=== PATIENT | female | born 1980 | race Caucasian/White ===

== ENCOUNTER → 2019-01-08 | Outpatient (CLI) | payer OTHER | END | disposition home or self-care (01) | LOC: SLR 11:00 | PROVIDERS: ATTEND Otolaryngology | DX: G47.33 Obstructive sleep apnea (adult) (pediatric) (principal); R40.0 Somnolence; R06.83 Snoring | CPT/HCPCS: 95810 ==

== ENCOUNTER 2019-02-25 11:00 | Outpatient (CLI) | payer OTHER | END 2019-02-25 11:01 | disposition home or self-care (01) | LOC: SLR 11:00 | PROVIDERS: ATTEND Otolaryngology | DX: G47.33 Obstructive sleep apnea (adult) (pediatric) (principal); R40.0 Somnolence; R06.83 Snoring; E66.9 Obesity, unspecified | CPT/HCPCS: 95811 ==

== ENCOUNTER 2021-07-14 12:27 | Emergency (ER) | payer OTHER ==
[2021-07-14 12:49] VITALS: BP 112/80
[2021-07-14] MEDS ORDERED: FAMOTIDINE 20 MG TAB PO ONE (12:52)
[2021-07-14] MEDS ORDERED: ONDANSETRON 4 MG/2 ML INJ IV ONE (12:52)
[2021-07-14] MEDS ORDERED: KETOROLAC 30 MG/1 ML INJ IV ONE (12:52)
--- NOTE | 2021-07-14 12:53 | Emergency Department Report ---
ED General Adult HPI - General Chief complaint: Abdominal Pain Stated complaint: WEAK Time Seen by Provider: 07/14/21 12:50 Source: patient Mode of arrival: Ambulatory Limitations: No Limitations - History of Present Illness Initial comments: 40-year-old female presents to the ER today with complaints of generalized weakness, generalized fatigue and upper abdominal discomfort. Patient states that she feels dehydrated. Patient states her symptoms started about 1 week ago. She states that she is a gastric bypass patient which she had done in April 2021. She states that she has not had much appetite in the past week. She denies any vomiting or nausea. She states that the discomfort is mainly upper abdomen and around into her back. She reports decreased urine output but no dysuria, hematuria or urinary odor. She reports no chest pain or shortness of breath. She states that her next appointment with her gastric bypass surgeon is 18 July. She denies any tobacco use, or alcohol abuse. The first day of her last menstrual cycle was this past Sunday. She status post tubal ligation. MD Complaint: Generalized weakness, generalized fatigue, abdominal pain -: Gradual, week(s) Severity scale (0 -10): 10 - Related Data Previous Rx's Medication Instructions Recorded Last Taken Type Famotidine [Pepcid] 20 mg PO BID #30 tablet 07/14/21 Unknown Rx Fluconazole [Diflucan TAB] 200 mg PO QDAY #2 tablet 07/14/21 Unknown Rx HYDROcodone/APAP 5-325 [[place] 1 each PO Q4HR PRN #12 tablet 07/14/21 Unknown Rx 5/325] Pantoprazole [Protonix] 40 mg PO QDAY #30 tablet 07/14/21 Unknown Rx cephALEXin [Keflex] 500 mg PO Q8HR #21 cap 07/14/21 Unknown Rx Allergies Allergy/AdvReac Type Severity Reaction Status Date / Time No Known Allergies Allergy Unverified 07/14/21 12:42 ED Review of Systems ROS: Stated complaint: WEAK Other details as noted in HPI Comment: All other systems reviewed and negative Constitutional: malaise, weakness. denies: chills, fever Eyes: denies: eye pain, eye discharge, vision change ENT: denies: ear pain, throat pain Respiratory: denies: cough, shortness of breath, SOB with exertion, SOB at rest, wheezing Cardiovascular: denies: chest pain, palpitations Gastrointestinal: abdominal pain, other (Decreased appetite). denies: nausea, vomiting, diarrhea, constipation, hematemesis, melena, hematochezia Genitourinary: denies: urgency, dysuria, frequency, hematuria, discharge, abnormal menses, dyspareunia Musculoskeletal: back pain. denies: joint swelling, arthralgia Skin: denies: rash, lesions, change in color, change in hair/nails, pruritus Neurological: denies: headache, weakness, numbness, paresthesias, confusion, ab normal gait, vertigo Psychiatric: denies: anxiety, depression, auditory hallucinations, visual hallucinations, homicidal thoughts, suicidal thoughts Hematological/Lymphatic: denies: easy bleeding, easy bruising, swollen glands ED Past Medical Hx - Past Medical History Hx Hypertension: Yes - Surgical History Additional Surgical History: GASTRIC BYPASS - Medications Home Medications: Home Medications Medication Instructions Recorded Confirmed Last Taken Type Famotidine [Pepcid] 20 mg PO BID #30 tablet 07/14/21 Unknown Rx Fluconazole [Diflucan TAB] 200 mg PO QDAY #2 tablet 07/14/21 Unknown Rx HYDROcodone/APAP 5-325 [[place] 1 each PO Q4HR PRN #12 tablet 07/14/21 Unknown Rx 5/325] Pantoprazole [Protonix] 40 mg PO QDAY #30 tablet 07/14/21 Unknown Rx cephALEXin [Keflex] 500 mg PO Q8HR #21 cap 07/14/21 Unknown Rx ED Physical Exam - General Limitations: No Limitations General appearance: alert, in no apparent distress - Head Head exam: Present: atraumatic, normocephalic - Eye Eye exam: Present: normal appearance, PERRL, EOMI Pupils: Present: normal accommodation - ENT ENT exam: Present: normal exam, mucous membranes moist - Neck Neck exam: Present: normal inspection, full ROM - Respiratory Respiratory exam: Present: normal lung sounds bilaterally. Absent: respiratory distress, wheezes, rales, rhonchi, stridor - Cardiovascular Cardiovascular Exam: Present: regular rate, normal rhythm, normal heart sounds - GI/Abdominal GI/Abdominal exam: Present: soft, tenderness (Mild epigastric tenderness without guarding or rebound). Absent: distended, guarding, rebound, rigid - Neurological Exam Neurological exam: Present: alert, oriented X3, CN II-XII intact, normal gait - Psychiatric Psychiatric exam: Present: normal affect, normal mood - Skin Skin exam: Present: intact ED Course Vital Signs 07/14/21 12:46 Temperature 97.5 F L Pulse Rate 93 H Respiratory 18 Rate Blood Pressure 112/80 [Right] O2 Sat by Pulse 100 Oximetry ED Medical Decision Making - Lab Data Result diagrams: 07/14/21 13:07 07/14/21 13:07 - Radiology Data Radiology results: report reviewed Patient: NISHI MELGAR MR#: [id number] : 1980 Acct:[id number] Age/Sex: 40 / F ADM Date: 07/14/21 Loc: ED Attending Dr: Ordering Physician: ESTRELLA CARDENAS Date of Service: 07/14/21 Procedure(s): XR abdomen 1V ap Accession Number(s): [id number] cc: ESTRELLA CARDENAS Fluoro Time In Minutes: ABDOMEN 1 VIEW(S) INDICATION / CLINICAL INFORMATION: up abdominal pain status post gastric bypass surg. COMPARISON: None available. FINDINGS: TUBES / LINES: None. BOWEL GAS PATTERN: No significant abnormality. FREE AIR / EXTRALUMINAL GAS: None seen. ADDITIONAL FINDINGS: Postsurgical changes are seen in the left upper quadrant in the stomach. There are a few punctate calcific densities in the right upper quadrant. These could be small renal stones or gallstones. IMPRESSION: 1. No radiographic evidence of acute abdomen. Postsurgical changes in the left upper quadrant. Signer Name: Mauri Ruiz MD Signed: 07/14/2021 2:12 PM Workstation Name: [id number] Transcribed By: Dictated By: Mauri Ruiz MD Electronically Authenticated By: Mauri Ruiz MD Signed Date/Time: 07/14/211411 DD/ 09 TD/TT: - Medical Decision Making All labs reviewed -- CBC and CMP unremarkable. Lipase normal. UA concerning for UTI, reflex culture ordered and pending. There is also yeast in UA. KUB normal. Patient is currently resting comfortably. She is not in any acute distress. She hemodynamically stable, she is not toxic and neurologically intact with a normal gait. She has a nonsurgical abdominal exam. Discussed results with patient. She will be treated for UTI as well as yeast infection. She states that she did have an upper endoscopy recently, and she was told that it was okay but I will still put her on H2 rafael and PPI to cover for possible gastritis. Her Exam, diagnostic testing and current condition do not suggest acute appendicitis, bowel obstruction, acute cholecystitis, bowel perforation, major GI bleed, severe diverticulitis, abdominal aortic aneurysm, mesenteric ischemia, volvulus, acute ME or unstable angina, sepsis or other significant pathology to warrant further testing, continued ED treatment, admission or surgical ev aluation at this point. Recommend she keeps her appointment with her gastric bypass surgeon for July 26. She understands to return to the ER if any point her symptoms worsens or changes in any way. Critical care attestation.: If time is entered above; I have spent that time in minutes in the direct care of this critically ill patient, excluding procedure time. ED Disposition Clinical Impression: Weakness, UTI (urinary tract infection), Yeast vaginitis, Abdominal discomfort, epigastric Disposition: 01 HOME / SELF CARE / HOMELESS Is pt being admited?: No Does the pt Need Aspirin: No Condition: Stable Instructions: Gastritis, Adult, Prov-ll-Smed, Vaginal Yeast Infection, Adult, Urinary Tract Infection, Adult, [id number], Weakness, Abdominal Pain (ED) Additional Instructions: I recommend that you take the medications prescribed as directed. I do recommend that you keep your appointment with your gastric bypass surgeon for July 26. Try and drink lots of fluids. Return to the ER if at any point your symptoms worsens or changes in any way. Prescriptions: Fluconazole [Diflucan TAB] 200 mg PO QDAY #2 tablet cephALEXin [Keflex] 500 mg PO Q8HR #21 cap HYDROcodone/APAP 5-325 [[place] 5/325] 1 each PO Q4HR PRN #12 tablet PRN Reason: Pain Famotidine [Pepcid] 20 mg PO BID #30 tablet Pantoprazole [Protonix] 40 mg PO QDAY #30 tablet Referrals: PRIMARY CARE, [Primary Care Provider] - 3-5 Days Forms: Work/School Release Form(ED) Time of Disposition: 15:51
[2021-07-14 13:52] LABS: Basophils # (Auto) 0.1 K/mm3 (0.0-0.1); Basophils % (Auto) 0.7 % (0.0-1.8); Eosinophils # (Auto) 0.1 K/mm3 (0.0-0.4); Eosinophils % (Auto) 1.5 % (0.0-4.3); Hematocrit 35.6 % (30.3-42.9); Hemoglobin 11.2 gm/dl (10.1-14.3); Lymphocytes # (Auto) 1.5 K/mm3 (1.2-5.4); Lymphocytes % (Auto) 18.6 % (13.4-35.0); Mean Corpuscular HGB Conc 32 % (30-34); Mean Corpuscular Volume 81 fl (79-97); Monocytes # (Auto) 0.7 K/mm3 (0.0-0.8); Platelet Count 389 K/mm3 (140-440); Red Cell Distribution Width 15.2 % (13.2-15.2)
[2021-07-14 14:09] LABS: Alanine Aminotransferase 23 units/L (7-56); Albumin 3.9 g/dL (3.9-5); BUN/Creatinine Ratio 18; Blood Urea Nitrogen 16 mg/dL (7-17); Calcium 8.9 mg/dL (8.4-10.2); Hemolysis Index 0
--- NOTE | 2021-07-14 14:16 | XRay Report ---
ABDOMEN 1 VIEW(S) INDICATION / CLINICAL INFORMATION: up abdominal pain status post gastric bypass surg. COMPARISON: None available. FINDINGS: TUBES / LINES: None. BOWEL GAS PATTERN: No significant abnormality. FREE AIR / EXTRALUMINAL GAS: None seen. ADDITIONAL FINDINGS: Postsurgical changes are seen in the left upper quadrant in the stomach. There are a few punctate calcific densities in the right upper quadrant. These could be small renal s tones or gallstones. IMPRESSION: 1. No radiographic evidence of acute abdomen. Postsurgical changes in the left upper quadrant. Signer Name: Mauri Ruiz MD Signed: 07/14/2021 2:12 PM Workstation Name: [id number]
[2021-07-14 15:46] LABS: Bacteria,Urine 1+ /HPF (Negative); Bilirubin,Urine NEG (Negative); Blood,Urine MOD (Negative); Color,Urine Amber (Yellow); Mucus,Urine 2+ /HPF
== END 2021-07-14 16:12 | disposition home or self-care (01) ==
LOC: ED 12:27
DX: R53.1 Weakness (principal); N39.0 Urinary tract infection, site not specified; B37.3 Candidiasis of vulva and vagina; R10.0 Acute abdomen
CPT/HCPCS: 36415; 74018; 80053; 81001; 83690; 83735; 84703; 85025; 87086; 96374; 96375; 99284; J1885; J2405

== ENCOUNTER 2022-03-15 09:56 | Emergency (ER) | payer OTHER ==
[2022-03-15 11:34] VITALS: BP 137/86
--- NOTE | 2022-03-15 11:55 | Emergency Department Report ---
ED Female HPI - General Chief complaint: Vaginal Bleeding Stated complaint: BLOOD CLOTS/DEHYDRATED Time Seen by Provider: 03/15/22 11:48 Source: patient Mode of arrival: Ambulatory Limitations: No Limitations - History of Present Illness Initial comments: 41 yo comes to ER with irregular periods and pos home preg test. pos vag bleeding. no vag d/c. no fever. no chills. no back pain. no dysuria. MD Complaint: vaginal bleeding -: Gradual Severity scale (0 -10): 2 Quality: cramping Consistency: intermittent Improves with: none Are you Now?: No Associated Symptoms: denies other symptoms - Related Data Sexually active: Yes Previous Rx's Medication Instructions Recorded Last Taken Type Amoxicillin [Trimox CAP] 500 mg PO BID #20 capsule 03/15/22 Unknown Rx Allergies Allergy/AdvReac Type Severity Reaction Status Date / Time No Known Allergies Allergy Verified 03/15/22 12:57 ED Review of Systems ROS: Stated complaint: BLOOD CLOTS/DEHYDRATED Other details as noted in HPI Comment: All other systems reviewed and negative ED Past Medical Hx - Past Medical History Previous Medical History?: Yes Hx Hypertension: Yes - Surgical History Past Surgical History?: Yes Additional Surgical History: GASTRIC BYPASS - Family History Family history: no significant - Social History Smoking Status: Never Smoker Substance Use Type: Alcohol - Medications Home Medications: Home Medications Medication Instructions Recorded Confirmed Last Taken Type Amoxicillin [Trimox CAP] 500 mg PO BID #20 capsule 03/15/22 Unknown Rx ED Physical Exam - General Limitations: No Limitations General appearance: alert, in no apparent distress - Head Head exam: Present: atraumatic, normocephalic - Eye Eye exam: Present: normal appearance - ENT ENT exam: Present: mucous membranes moist - Neck Neck exam: Present: normal inspection - Respiratory Respiratory exam: Present: normal lung sounds bilaterally. Absent: respiratory distress - Cardiovascular Cardiovascular Exam: Present: regular rate, normal rhythm. Absent: systolic murmur, diastolic murmur, rubs, gallop - GI/Abdominal GI/Abdominal exam: Present: soft, normal bowel sounds - Extremities Exam Extremities exam: Present: normal inspection - Back Exam Back exam: Present: normal inspection - Neurological Exam Neurological exam: Present: alert, oriented X3 - Psychiatric Psychiatric exam: Present: normal affect, normal mood - Skin Skin exam: Present: warm, dry, intact, normal color. Absent: rash ED Course Vital Signs 03/15/22 11:32 Temperature 98.3 F Pulse Rate 83 Respiratory 20 Rate Blood Pressure 137/86 [Right] O2 Sat by Pulse 100 Oximetry ED Medical Decision Making - Lab Data Result diagrams: 03/15/22 12:15 03/15/22 12:15 - Radiology Data Radiology results: report reviewed, image reviewed - Medical Decision Making Labs 03/15/22 03/15/22 03/15/22 11:54 12:15 12:20 WBC 8.4 RBC 4.76 Hgb 11.9 Hct 37.5 MCV 79 MCH 25 L MCHC 32 RDW 16.3 H Plt Count 429 Lymph % (Auto) 23.1 [place] % (Auto) 6.0 Eos % (Auto) 1.2 Baso % (Auto) 1.1 Lymph # (Auto) 1.9 [place] # (Auto) 0.5 Eos # (Auto) 0.1 Baso # (Auto) 0.1 Seg Neutrophils % 68.6 Seg Neutrophils # 5.8 Urine Color Yellow Urine Turbidity Clear Specific [place] (Man) 1.010 Ur Protein (Man) 1+ Ur Ketones (Man) Negative Urine Bilirubin (Man) Negative Urine WBC (Auto) 14.0 H Urine RBC (Auto) 24.0 U Epithel Cells (Auto) 14.0 H Urine RBC (Manual) 3+ Urine Mucus Few Blood Type B POSITIVE Ord Rhogam Gestat Weeks Rh pos Vital Signs 03/15/22 11:32 Temperature 98.3 F Pulse Rate 83 Respiratory 20 Rate Blood Pressure 137/86 [Right] O2 Sat by Pulse 100 Oximetry labs noted ua noted rocephin IM us noted dc home with dc plan of care including diet, meds, activity and follow up. pt verbalizes understanding of plan of care. - Differential Diagnosis ro ab/uti/ectopic Critical care attestation.: If time is entered above; I have spent that time in minutes in the direct care of this critically ill patient, excluding procedure time. ED Disposition Clinical Impression: Irregular menses UTI (urinary tract infection) Qualifiers: Urinary tract infection type: site unspecified Disposition: 01 HOME / SELF CARE / HOMELESS Is pt being admited?: No Does the pt Need Aspirin: No Condition: Stable Instructions: Urinary Tract Infection, Adult Additional Instructions: med as ordered today until gone follow up with obgyn referral below tylenol for pain Prescriptions: Amoxicillin [Trimox CAP] 500 mg PO BID #20 capsule Referrals: MARKEL MISHRA MD [Staff Physician] - 3-5 Days Forms: Work/School Release Form(ED) Time of Disposition: 15:49
[2022-03-15 12:17] LABS: Mucus,Urine FEW /HPF
[2022-03-15 12:18] LABS: Color,Urine Yellow (Yellow)
[2022-03-15] MEDS ORDERED: ACETAMINOPHEN 500 MG TAB PO ONE (12:24)
[2022-03-15] MEDS ORDERED: LIDOCAINE-MPF (1%) 10 MG/1 ML VIAL 5 ML INFILTRATI ONE (12:24)
[2022-03-15 13:25] LABS: Basophils # (Auto) 0.1 K/mm3 (0.0-0.1); Basophils % (Auto) 1.1 % (0.0-1.8); Eosinophils # (Auto) 0.1 K/mm3 (0.0-0.4); Eosinophils % (Auto) 1.2 % (0.0-4.3); Hematocrit 37.5 % (30.3-42.9); Hemoglobin 11.9 gm/dl (10.1-14.3); Lymphocytes # (Auto) 1.9 K/mm3 (1.2-5.4); Lymphocytes % (Auto) 23.1 % (13.4-35.0); Mean Corpuscular HGB Conc 32 % (30-34); Mean Corpuscular Volume 79 fl (79-97); Monocytes # (Auto) 0.5 K/mm3 (0.0-0.8); Platelet Count 429 K/mm3 (140-440); Red Blood Count 4.76 M/mm3 (3.65-5.03); Red Cell Distribution Width 16.3 % (13.2-15.2)
--- NOTE | 2022-03-15 15:47 | Ultrasound Report ---
ULTRASOUND OBSTETRIC INDICATION / CLINICAL INFORMATION: VAG BLEED IN PREG. TECHNIQUE: Transabdominal. The patient declined transvaginal imaging. COMPARISON: None available. FINDINGS: No intrauterine is seen. The uterus measures 10.9 cm in length. There is a 1.3 cm fibroid i n the posterior uterus. Endometrial stripe measures 6 mm. ADNEXA: The right ovary is not visualized. The left ovary measures 3 cm and is unremarkable. FREE FLUID: None. ADDITIONAL FINDINGS: None. IMPRESSION: 1. No intrauterine is seen. No free fluid is seen. The right ovary is not visualized. The l eft ovary is unremarkable. 2. Correlation with serum beta hCG level is recommended Signer Name: Ulysses Giles MD Signed: 03/15/2022 3:43 PM Workstation Name: [id number]
[2022-03-15 16:05] LABS: BUN/Creatinine Ratio 19; Blood Urea Nitrogen 17 mg/dL (7-17); Calcium 9.5 mg/dL (8.4-10.2); Hemolysis Index 6
== END 2022-03-15 14:00 | disposition home or self-care (01) ==
LOC: ED 09:56
DX: N39.0 Urinary tract infection, site not specified (principal); N92.6 Irregular menstruation, unspecified; I10 Essential (primary) hypertension
CPT/HCPCS: 36415; 76801; 80048; 81001; 84702; 85025; 86900; 86901; 87086; 96372; 99284; J3490